=== PATIENT | male | born 1995 | race Caucasian/White ===

== ENCOUNTER 2016-12-21 17:36 | Emergency (ER) | payer MEDICAID ==
[2016-12-21 17:43] VITALS: RESP 16; TEMP 99.1
[2016-12-21] MEDS ORDERED: NS 1,000 ML IV ONE (18:06)
--- NOTE | 2016-12-21 18:27 | EDPHY ---
H & P Time Seen by Provider: 12/21/16 17:49 HPI/ROS: CHIEF COMPLAINT: Right buttock abscess HISTORY OF PRESENT ILLNESS: This is a 21-year-old male presenting to the emergency department complaining of abscess to his right butt cheek. Patient states "I tried to shoot heroin about a week and half ago, the redness and pain and swelling started about 4-5 days ago" patient also reports worsening pain today with intermittent fever. Patient also reports his last heroin injection to his left forearm was 4 hours ago. Has been a heroin user for 2 years the lungs patient has gone without heroin has been 24 hours then he developed symptoms of nausea vomiting abdominal pain denies any other symptoms at this time. REVIEW OF SYSTEMS: Constitutional: Intermittent fever. No chills. Eyes: No discharge. No blurred vision ENT: No sore throat. Cardiovascular: No chest pain, no palpitations. Respiratory: No cough, no shortness of breath. Gastrointestinal: No abdominal pain, no vomiting. No nausea Genitourinary: No hematuria. Musculoskeletal: No back pain. Skin: No rashes. Right buttock abscess Neurological: No headache. Smoking Status: Current some day smoker Physical Exam: General Appearance: Alert, no distress. Eyes: Pupils equal and round no pallor or injection. ENT, Mouth: Mucous membranes moist. Respiratory: There are no retractions, lungs are clear to auscultation. Cardiovascular: Regular rate and rhythm. Gastrointestinal: Abdomen is soft and nontender, no masses, bowel sounds normal. Neurological: No focal deficits. Answering questions appropriately Skin: Warm and dry, no rashes. Musculoskeletal: Neck is supple nontender. Extremities: old and new track aguilar from previous IV heroin injections on bilateral upper extremities no erythema. full range of motion. Right buttock 12 cm x 13 cm area of erythema warm and tender with a 6 cm x 4 cm indurated area Psychiatric: Patient is oriented X 3, there is no agitation. Constitutional: Initial Vital Signs Temperature (C) 37.3 C 12/21/16 17:39 Heart Rate 123 H 12/21/16 17:39 Respiratory Rate 16 12/21/16 17:39 O2 Sat (%) 100 12/21/16 17:39 O2 Delivery Mode Room Air Allergies/Adverse Reactions: No Known Allergies Allergy (Unverified 12/21/16 17:37) Home Medications: Medication Instructions Recorded Clindamycin HCl [Clindamycin] 300 mg PO TID #30 cap 12/21/16 Medical Decision Making Procedures: Procedure: Abscess drainage. The patient's abscess was located on the right buttock. I obtained verbal consent from the patient to drain the abscess who was informed about the risks including but not limited to the possibility of bleeding and pain. Lidocaine w/epi 10ml local infiltrate used. The abscess was incised with a #11 scalpel and moderate purulent drainage was expressed. I irrigated the wound and packed it with iodoform gauze. Wound culture sent. The patient tolerated the procedure well. The procedure was performed by myself. ED Course/Re-evaluation: Discussed ED plan of care: CBC, CMP, PT PTT, lactate, blood cultures,1 L of normal saline IV 2030: IV clindamycin 900 mg. 2100: Incision and drainage of abscess, patient tolerated procedure. Discussed discharge instructions--> stable, not in any distress discharge home Differential Diagnosis: Other differential diagnosis considered but not limited to sepsis, necrotizing fasciitis cellulitis - Data Points Laboratory Results: Laboratory Results 12/21/16 18:55 12/21/16 18:20 12/21/16 12/21/16 12/21/16 18:55 18:55 18:55 WBC 18.57 10^3/uL H 10^3/uL (3.80-9.50) RBC 4.49 10^6/uL 10^6/uL (4.40-6.38) Hgb 11.2 g/dL L g/dL (13.7-17.5) Hct 33.8 % L % (40.0-51.0) MCV 75.3 fL L fL (81.5-99.8) MCH 24.9 pg L pg (27.9-34.1) MCHC 33.1 g/dL g/dL (32.4-36.7) RDW 12.8 % % (11.5-15.2) Plt Count 358 10^3/uL 10^3/uL (150-400) MPV 9.7 fL fL (8.7-11.7) Neut % (Auto) 88.0 % H % (39.3-74.2) Lymph % (Auto) 4.7 % L % (15.0-45.0) Dyer % (Auto) 6.4 % % (4.5-13.0) Eos % (Auto) 0.1 % L % (0.6-7.6) Baso % (Auto) 0.3 % % (0.3-1.7) Nucleat RBC Rel Count 0.0 % % (0.0-0.2) Absolute Neuts (auto) 16.37 10^3/uL H 10^3/uL (1.70-6.50) Absolute Lymphs (auto) 0.87 10^3/uL L 10^3/uL (1.00-3.00) Absolute Monos (auto) 1.18 10^3/uL H 10^3/uL (0.30-0.80) Absolute Eos (auto) 0.01 10^3/uL L 10^3/uL (0.03-0.40) Absolute Basos (auto) 0.05 10^3/uL 10^3/uL (0.02-0.10) Absolute Nucleated RBC 0.00 10^3/uL 10^3/uL (0-0.01) Immature Gran % 0.5 % % (0.0-1.1) Seg Neutrophils % 68 % % Band Neutrophils % 20 % % Lymphocytes % 6 % % Monocytes % 6 % % Immature Gran # 0.09 10^3/uL 10^3/uL (0.00-0.10) Absolute Seg Neuts 12.63 10^/uL H 10^/uL (1.70-6.50) Absolute Band Neuts 3.71 10^3/uL H 10^3/uL (0.00-0.70) Absolute Lymphocytes 1.11 10^3/uL 10^3/uL (1.00-3.00) Absolute Monocytes 1.11 10^3/uL H 10^3/uL (0.30-0.80) RBC/WBC/PLT Morphology NORMAL (NORMAL) Platelet Estimate ADEQUATE (ADEQ) PT 16.0 SEC H SEC (12.0-15.0) INR 1.28 H (0.83-1.16) APTT 29.2 SEC SEC (23.0-38.0) VBG Lactic Acid 0.7 mmol/L mmol/L (0.7-2.1) Sodium Potassium Chloride Carbon Dioxide Anion Gap BUN Creatinine Estimated GFR Glucose Calcium Total Bilirubin 12/21/16 12/21/16 18:20 18:20 WBC REJ RBC TNP Hgb TNP Hct TNP MCV TNP MCH TNP MCHC TNP RDW TNP Plt Count TNP MPV TNP Neut % (Auto) TNP Lymph % (Auto) TNP Dyer % (Auto) TNP Eos % (Auto) TNP Baso % (Auto) TNP Nucleat RBC Rel Count TNP Absolute Neuts (auto) TNP Absolute Lymphs (auto) TNP Absolute Monos (auto) TNP Absolute Eos (auto) TNP Absolute Basos (auto) TNP Absolute Nucleated RBC TNP Immature Gran % TNP Seg Neutrophils % Band Neutrophils % Lymphocytes % Monocytes % Immature Gran # TNP Absolute Seg Neuts Absolute Band Neuts Absolute Lymphocytes Absolute Monocytes RBC/WBC/PLT Morphology Platelet Estimate PT INR APTT VBG Lactic Acid Sodium 138 mEq/L mEq/L (134-144) Potassium 4.2 mEq/L mEq/L (3.5-5.2) Chloride 105 mEq/L mEq/L (97-110) Carbon Dioxide 20 mEq/l L mEq/l (22-31) Anion Gap 13 mEq/L mEq/L (8-16) BUN 14 mg/dL mg/dL (7-23) Creatinine 0.8 mg/dL mg/dL (0.7-1.3) Estimated GFR > 60 Glucose 151 mg/dL H mg/dL (70-100) Calcium 9.4 mg/dL mg/dL (8.5-10.4) Total Bilirubin 1.0 mg/dL mg/dL (0.1-1.4) Medications Given: Discontinued Medications Hydromorphone HCl (Dilaudid) 1 mg IVP EDNOW ONE Stop: 12/21/16 20:07 Last Admin: 12/21/16 20:09 Dose: 1 mg Sodium Chloride (Ns) 1,000 mls @ 0 mls/hr IV ONCE ONE PRN Reason: Wide Open Stop: 12/21/16 18:07 Last Admin: 12/21/16 19:15 Dose: 1,000 mls Clindamycin Phosphate/Dextrose (Cleocin 900 Mg (Premix)) 50 mls @ 100 mls/hr IV EDNOW ONE PRN Reason: Protocol Stop: 12/21/16 20:42 Last Admin: 12/21/16 20:31 Dose: 50 mls Departure - Departure Disposition: Home, Routine, Self-Care Clinical Impression: Abscess, Cellulitis and abscess of buttock Incisional abscess Qualifiers: Encounter type: initial encounter Qualified Code(s): T81.4XXA - Infection following a procedure, initial encounter Condition: Good Instructions: Cellulitis (ED), Abscess (ED), Warm Compress or Soak (ED) Additional Instructions: 1. Take all antibiotics as prescribed 2. Ibuprofen 600-800mg every 6-8 hours 3. Follow up in 48 hours for wound check at [facility] if you cannot get into [facility] return here 4. I have drawn a [place] around the area of redness, monitor for any worsening symptoms, such as: Fever nausea vomiting redness abscess worsening return to the ER Referrals: NONE *PRIMARY CARE P,. [Primary Care Provider] - As per Instructions [facility],. [Clinic] - As per Instructions Prescriptions: Clindamycin HCl [Clindamycin] 300 mg PO TID #30 cap
[2016-12-21 18:43] LABS: ANION GAP 13 mEq/L (8-16); CALCIUM 9.4 mg/dL (8.5-10.4); CARBON DIOXIDE 20 mEq/l (22-31); CHLORIDE 105 mEq/L (97-110); CREATININE 0.8 mg/dL (0.7-1.3); GLOMERULAR FILTRATION RATE > 60; GLUCOSE 151 mg/dL (70-100); POTASSIUM 4.2 mEq/L (3.5-5.2); SODIUM 138 mEq/L (134-144)
[2016-12-21 19:12] LABS: INR 1.28 (0.83-1.16)
[2016-12-21 19:13] LABS: APTT 29.2 SEC (23.0-38.0)
[2016-12-21 19:25] LABS: % IMMATURE GRANULYOCYTES 0.5 % (0.0-1.1); ABSOLUTE IMMATURE GRANULOCYTES 0.09 10^3/uL (0.00-0.10); ADD DIFF? NO; ADD MORPH? NO; ADD SCAN? YES; ATYPICAL LYMPHOCYTE FLAG 10 (0-99); FRAGMENT RBC FLAG 0 (0-99); HEMATOCRIT 33.8 % (40.0-51.0); HEMOGLOBIN 11.2 g/dL (13.7-17.5); LIPEMIA HEMOLYSIS FLAG 80 (0-99); MEAN CELL HEMOGLOBIN 24.9 pg (27.9-34.1); MEAN CELL HEMOGLOBIN CONCENTR. 33.1 g/dL (32.4-36.7); MEAN CELL VOLUME 75.3 fL (81.5-99.8); MEAN PLATELET VOLUME 9.7 fL (8.7-11.7); PLATELET CLUMPS FLAG 10 (0-99); PLATELET COUNT 358 10^3/uL (150-400); RED BLOOD CELL COUNT 4.49 10^6/uL (4.40-6.38); RED CELL DISTRIBUTION WIDTH 12.8 % (11.5-15.2)
[2016-12-21 19:30] LABS: LEFT SHIFT FLG 160 (0-99)
[2016-12-21] MEDS ORDERED: HYDROmorphONE/DILAUDID 1 MG/ML SYR IVP ONE (20:06)
[2016-12-21 20:11] LABS: SCAN POSITIVE
[2016-12-21 20:13] LABS: PLATELET ESTIMATE ADEQUATE (ADEQ)
[2016-12-21] MEDS ORDERED: CLINDAMYCIN 900 MG/DEXTROSE 50 ML IV ONE (20:13)
[2016-12-21 20:35] VITALS: O2SAT 99
[2016-12-21 21:06] VITALS: BP 108/69; PULSE 96
== END 2016-12-21 21:05 | disposition home or self-care (01) ==
PROC: 0H98XZZ Drainage of Buttock Skin, External Approach (ICD-10-PCS; principal; 2016-12-21)
DX: L02.31 Cutaneous abscess of buttock (principal); L03.317 Cellulitis of buttock; F17.200 Nicotine dependence, unspecified, uncomplicated
CPT/HCPCS: 96365; J1170

== ENCOUNTER 2017-05-05 20:45 | Emergency (ER) | payer MEDICAID ==
[2017-05-05 20:56] VITALS: O2SAT 97
--- NOTE | 2017-05-05 21:38 | EDPHY ---
H & P Stated Complaint: abcess to r le Time Seen by Provider: 05/05/17 21:37 HPI/ROS: HPI: This is a 21-year-old male who presents with Chief Complaint: abcess to r le Location: Right dowd Quality: Abscess Duration: 6-12 days Signs and Symptoms: No bleeding, no radiation, no numbness, no weakness, no tingling, no incontinence, no decreased range of motion, + swelling, + pain Timing: Worsening Severity: Moderate to severe Context: Patient is IV heroin drug user last use 5 hr prior to arrival. Last abscess was in November treated in this emergency room with I and D and clindamycin. Patient reports that he followed up with [facility] at that time for wound care. No prior history MRSA/DM. Patient tried to use a needle to I and D the abscess approximately 4 days ago with drainage noted. He is able to ambulate without difficulty. Reports tetanus is up-to-date. Modifying Factors: I&D Comment: ROS: see HPI Constitutional: No fever, no chills, no weight loss Eyes: No blurred vision Respiratory: No shortness of breath, no cough Cardiovascular: No chest pain Gastrointestinal: No nausea, no vomiting no diarrhea Genitourinary: No dysuria Extremities: No myalgias Neurologic: No weakness, no numbness Skin: No rashes Hematologic: No bruising, no bleeding MEDICAL/SURGICAL/SOCIAL HISTORY: Medical history: IV heroin user. Does not take any regular medications. Surgical history: Denies Social history: Unemployed. CONSTITUTIONAL: Nontoxic appearing young adult white male, awake and alert, no obvious distress HEENT: Atraumatic and normocephalic, PERRL, EOMI. Tympanic membranes clear. Oropharynx clear, no exudate and moist pink mucosa. Airway patent. No lymphadenopathy. No meningismus. Cardiovascular: Normal S1/S2, regular rate, regular rhythm, without murmur rub or gallop. PULMONARY/CHEST: Symmetrical and nontender. Clear to auscultation bilaterally. Good air movement. No accessory muscle usage. ABDOMEN: Soft, nondistended, nontender, no rebound, no guarding, no peritoneal signs, no masses or organomegaly. No CVAT. EXTREMITIES: 2/2 DP and PT pulses, strength 5/5, right dowd shows 8 cm fluctuant skin colored abscess; no surrounding erythema/induration. no deformities, no clubbing, no cyanosis or edema. NEUROLOGICAL: no focal neuro deficits. GCS 15. SKIN: Warm and dry, no erythema. no rash. Good capillary refill. Source: Patient Exam Limitations: No limitations - Personal History Current Tetanus/Diphtheria Vaccine: Yes Current Tetanus Diphtheria and Acellular Pertussis (TDAP): Yes - Medical/Surgical History Hx Asthma: No Hx Chronic Respiratory Disease: No Hx Diabetes: No Hx Cardiac Disease: No Hx Renal Disease: No Hx Cirrhosis: No Hx Alcoholism: No Hx HIV/AIDS: No Hx Splenectomy or Spleen Trauma: No Other PMH: denies. heroine abuse - Social History Smoking Status: Current every day smoker Constitutional: Initial Vital Signs Temperature (C) 37.1 C 05/05/17 20:52 Heart Rate 131 H 05/05/17 20:52 Respiratory Rate 18 05/05/17 20:52 Blood Pressure 143/80 H 05/05/17 20:52 O2 Sat (%) 97 05/05/17 20:52 O2 Delivery Mode Room Air Allergies/Adverse Reactions: No Known Allergies Allergy (Unverified 12/21/16 17:37) Home Medications: Medication Instructions Recorded Clindamycin HCl [Clindamycin] 300 mg PO TID #30 cap 05/05/17 Medical Decision Making - Diagnostics Imaging Results: Imaging Impressions Tibia/Fibula X-Ray 05/05/17 22:15 Impression: Deep soft tissue abscess near the anteromedial margin of the upper right tibia. No radiographic evidence of osteomyelitis. Procedures: Procedure: Abscess drainage. The patient's abscess was located on the right dowd. I obtained verbal consent from the patient to drain the abscess who was informed about the possibility of bleeding and pain. The abscess was incised with #11 scalpel and a 40 ML amount of purulent drainage was expressed. I irrigated the wound and placed some 0.5 inch packing. Clean sterile dressing and Tano wrap applied. The patient tolerated the procedure well. The procedure was performed by myself. ED Course/Re-evaluation: Labs, blood cultures, IV fluids, IV medications, I&D, wound culture ordered Tetanus up-to-date Given 1 L normal saline, IV clindamycin given Leukocytosis of 19 K noted; no signs of sepsis. X-ray shows: Deep soft tissue abscess near the anteromedial margin of the upper right tibia. I and D performed; irrigated copiously with 1.5 L of normal saline. Placed half- inch gauze. ABD pad and then Tano wrap applied. Patient reassessed: Able to fully move his leg. Reports resolution of pain. Tachycardia upon arrival improved at discharge. I have recommended the patient be admitted to the hospital for IV antibiotics. Patient adamantly refuses. Patient understands that he is high risk for failure of outpatient therapy. After much discussion, he does agree to follow up with [facility] in 2 days for wound check. He understands the risk of worsening infection, sepsis, loss of limb. Differential Diagnosis: Differential diagnosis includes but is not limited to abscess, cellulitis. - Data Points Laboratory Results: Laboratory Results 05/05/17 22:10 05/05/17 22:10 05/05/17 05/05/17 05/05/17 22:45 22:10 22:10 WBC 19.78 10^3/uL H 10^3/uL (3.80-9.50) RBC 4.39 10^6/uL L 10^6/uL (4.40-6.38) Hgb 9.7 g/dL L g/dL (13.7-17.5) Hct 30.0 % L % (40.0-51.0) MCV 68.3 fL L fL (81.5-99.8) MCH 22.1 pg L pg (27.9-34.1) MCHC 32.3 g/dL L g/dL (32.4-36.7) RDW 16.8 % H % (11.5-15.2) Plt Count 511 10^3/uL H 10^3/uL (150-400) MPV 8.8 fL fL (8.7-11.7) Neut % (Auto) 85.2 % H % (39.3-74.2) Lymph % (Auto) 6.9 % L % (15.0-45.0) Rhea % (Auto) 6.1 % % (4.5-13.0) Eos % (Auto) 0.8 % % (0.6-7.6) Baso % (Auto) 0.5 % % (0.3-1.7) Nucleat RBC Rel Count 0.0 % % (0.0-0.2) Absolute Neuts (auto) 16.87 10^3/uL H 10^3/uL (1.70-6.50) Absolute Lymphs (auto) 1.36 10^3/uL 10^3/uL (1.00-3.00) Absolute Monos (auto) 1.21 10^3/uL H 10^3/uL (0.30-0.80) Absolute Eos (auto) 0.15 10^3/uL 10^3/uL (0.03-0.40) Absolute Basos (auto) 0.09 10^3/uL 10^3/uL (0.02-0.10) Absolute Nucleated RBC 0.00 10^3/uL 10^3/uL (0-0.01) Immature Gran % 0.5 % % (0.0-1.1) Immature Gran # 0.10 10^3/uL 10^3/uL (0.00-0.10) Platelet Estimate INCREASED H (ADEQ) Polychromasia 1+ H Hypochromasia 1+ H Microcytic Cells 1+ H Smear Review By Pending VBG Lactic Acid 0.7 mmol/L mmol/L (0.7-2.1) Sodium 136 mEq/L mEq/L (134-144) Potassium 4.3 mEq/L mEq/L (3.5-5.2) Chloride 97 mEq/L mEq/L (97-110) Carbon Dioxide 27 mEq/l mEq/l (22-31) Anion Gap 12 mEq/L mEq/L (8-16) BUN 14 mg/dL mg/dL (7-23) Creatinine 0.7 mg/dL mg/dL (0.7-1.3) Estimated GFR > 60 Glucose 112 mg/dL H mg/dL (70-100) Calcium 9.2 mg/dL mg/dL (8.5-10.4) Medications Given: Discontinued Medications Clindamycin Phosphate/Dextrose (Cleocin 600 Mg (Premix)) 50 mls @ 100 mls/hr IV EDNOW ONE PRN Reason: Protocol Stop: 05/05/17 22:31 Last Admin: 05/05/17 22:29 Dose: 50 mls Sodium Chloride (Ns) 1,000 mls @ 0 mls/hr IV EDNOW ONE; Wide Open PRN Reason: Protocol Stop: 05/05/17 22:04 Last Admin: 05/05/17 22:23 Dose: 1,000 mls Departure - Departure Disposition: Home, Routine, Self-Care Clinical Impression: Abscess of right lower leg, Intravenous drug user Condition: Fair Instructions: Abscess (ED), Abscess Follow-up (ED) Additional Instructions: Keep the dressing dry and in place for 48 hours. After seen by [facility], you may remove the dressing; wash the site daily with mild soap and water; then pat dry; repack the wound daily until healed. Keep the wound covered with clean sterile dressing until fully healed. Take all of the antibiotic until complete. Take Tylenol 650 mg every 4 hours and/or Ibuprofen 600 mg every 8 hours with food as needed for pain. Follow up with [facility] in 2 days at which time they will perform a wound check. Referrals: [facility],. [Clinic] - As per Instructions Prescriptions: Clindamycin HCl [Clindamycin] 300 mg PO TID #30 cap
[2017-05-05] MEDS ORDERED: CLINDAMYCIN 600 MG/DEXTROSE 50 ML IV ONE (22:02)
[2017-05-05] MEDS ORDERED: NS 1,000 ML IV ONE (22:03)
[2017-05-05 22:33] LABS: % IMMATURE GRANULYOCYTES 0.5 % (0.0-1.1); ADD DIFF? NO; ADD MORPH? YES; ADD SCAN? NO; ATYPICAL LYMPHOCYTE FLAG 0 (0-99); FRAGMENT RBC FLAG 20 (0-99); HEMOGLOBIN 9.7 g/dL (13.7-17.5); LEFT SHIFT FLG 0 (0-99); LIPEMIA HEMOLYSIS FLAG 80 (0-99); MEAN CELL HEMOGLOBIN 22.1 pg (27.9-34.1); MEAN CELL HEMOGLOBIN CONCENTR. 32.3 g/dL (32.4-36.7); MEAN PLATELET VOLUME 8.8 fL (8.7-11.7); PLATELET CLUMPS FLAG 0 (0-99); PLATELET COUNT 511 10^3/uL (150-400); RED BLOOD CELL COUNT 4.39 10^6/uL (4.40-6.38); RED CELL DISTRIBUTION WIDTH 16.8 % (11.5-15.2)
[2017-05-05 22:35] LABS: MEAN CELL VOLUME 68.3 fL (81.5-99.8)
[2017-05-05 22:41] LABS: ANION GAP 12 mEq/L (8-16); CALCIUM 9.2 mg/dL (8.5-10.4); CARBON DIOXIDE 27 mEq/l (22-31); CHLORIDE 97 mEq/L (97-110); CREATININE 0.7 mg/dL (0.7-1.3); GLOMERULAR FILTRATION RATE > 60; GLUCOSE 112 mg/dL (70-100); POTASSIUM 4.3 mEq/L (3.5-5.2); SODIUM 136 mEq/L (134-144)
[2017-05-05 23:19] VITALS: BP 124/75; PULSE 94; RESP 16; TEMP 98.4
[2017-05-05 23:49] LABS: HYPOCHROMIA 1+; MICROCYTES 1+; PLATELET ESTIMATE INCREASED (ADEQ); POLYCHROMASIA 1+
== END 2017-05-05 23:18 | disposition home or self-care (01) ==
PROC: 0H9KXZZ Drainage of Right Lower Leg Skin, External Approach (ICD-10-PCS; principal; 2017-05-05)
DX: L02.415 Cutaneous abscess of right lower limb (principal); F19.10 Other psychoactive substance abuse, uncomplicated; F17.200 Nicotine dependence, unspecified, uncomplicated
CPT/HCPCS: 96365

== ENCOUNTER 2017-10-30 19:23 | Emergency (ER) | payer OTHER, MEDICAID ==
--- NOTE | 2017-10-30 20:06 | EDPHY ---
H & P Time Seen by Provider: 10/30/17 19:44 HPI/ROS: CHIEF COMPLAINT: Arm wounds HISTORY OF PRESENT ILLNESS: Patient is a 21-year-old male with a history of IV drug abuse who presents emergency department with chronic right arm lesions and swelling. Patient denies any recent antibiotic use. He has not been evaluated or treated by a care provider. The patient is currently under resting going to half-way. He is here for [employer]. Patient states his wound have been constant for the past 1-2 months. They are not worsening in size. They are not tender to touch. He denies fevers or chills. REVIEW OF SYSTEMS: My complete review of systems is negative except as mentioned in the HPI. Past Medical/Surgical History: IV drug abuse Smoking Status: Current every day smoker Physical Exam: 36.7, 127/79, 104, 18, 99% on room air GENERAL: In no acute distress, alert. HEENT: Eyes normal to inspection, normal pharynx, no signs of dehydration. NECK: [No thyromegaly, no lymphadenopathy, supple. RESPIRATORY: Clear to auscultation bilaterally, no rales, rhonchi or wheezing. CVS: Regular rate and rhythm, no rubs, murmurs, or gallops. ABDOMEN: Soft, nontender, nondistended, no organomegaly. BACK: Normal to inspection, no CVA tenderness. SKIN: Normal color, no rash, warm, dry. No pallor. EXTREMITIES: Patient has swelling on both forearms. Left arm: The patient's left forearm has a large open wound. There is surrounding tense skin but this is not fluctuant. Patient denies tenderness to palpation. No streaking redness up the arm. There is no discoloration of the hand. Neurovascular intact distally of his left lower extremity. Right arm: Patient's right upper extremity also has swelling over the forearm. There is no open wound. There is no streaking or redness up the arm. No pedal edema, no calf tenderness, no Homans sign or cords, no joint swelling. NEURO/PSYCH: Alert and oriented x3, normal mood and affect, normal motor sensory exam. Constitutional: Initial Vital Signs Temperature (C) 36.7 C 10/30/17 19:25 Heart Rate 104 H 10/30/17 19:25 Respiratory Rate 18 10/30/17 19:25 Blood Pressure 127/79 H 06/08/18 19:25 O2 Sat (%) 99 10/30/17 19:25 O2 Delivery Mode Room Air Allergies/Adverse Reactions: No Known Allergies Allergy (Unverified 10/30/17 19:35) Home Medications: Medication Instructions Recorded Cephalexin [Keflex (*)] 500 mg PO QID 10 Days cap 10/30/17 Sulfamethox/Tmp 800/160 mg 1 tab PO BID #20 tab 10/30/17 [Bactrim Ds] Medical Decision Making ED Course/Re-evaluation: In the emergency department I discussed possible etiologies with the patient. I consult Dr. Whitehead from surgery. Dr. Whitehead was in the emergency department. He evaluated the patient. Performed ultrasound bedside. He is on a fluid collection or ER for drainage. Patient's white count is 12. Patient is anemic with hematocrit 26. Patient's chemistry panel is unremarkable. Lactic acid is normal. I discussed case with Dr. Whitehead. He recommended the patient be discharged to half-way. He recommended the patient have silvasorb cream for dressing if able. Patient will be given Keflex and Bactrim. He is given the 1st dose in the emergency department. Discussed the plan with the patient. Answered all his questions. Differential Diagnosis: My differential includes but is not limited to abscess, cellulitis, foreign body , bacteremia, sepsis, anemia - Data Points Laboratory Results: Laboratory Results 10/30/17 20:30 10/30/17 20:30 10/30/17 10/30/17 10/30/17 20:30 20:30 20:30 WBC 12.04 10^3/uL H 10^3/uL (3.80-9.50) RBC 4.17 10^6/uL L 10^6/uL (4.40-6.38) Hgb 8.2 g/dL L g/dL (13.7-17.5) Hct 26.9 % L % (40.0-51.0) MCV 64.5 fL L fL (81.5-99.8) MCH 19.7 pg L pg (27.9-34.1) MCHC 30.5 g/dL L g/dL (32.4-36.7) RDW 18.5 % H % (11.5-15.2) Plt Count 564 10^3/uL H 10^3/uL (150-400) MPV 9.3 fL fL (8.7-11.7) Neut % (Auto) 78.0 % H % (39.3-74.2) Lymph % (Auto) 11.9 % L % (15.0-45.0) Sullivan % (Auto) 5.8 % % (4.5-13.0) Eos % (Auto) 3.4 % % (0.6-7.6) Baso % (Auto) 0.6 % % (0.3-1.7) Nucleat RBC Rel Count 0.0 % % (0.0-0.2) Absolute Neuts (auto) 9.39 10^3/uL H 10^3/uL (1.70-6.50) Absolute Lymphs (auto) 1.43 10^3/uL 10^3/uL (1.00-3.00) Absolute Monos (auto) 0.70 10^3/uL 10^3/uL (0.30-0.80) Absolute Eos (auto) 0.41 10^3/uL H 10^3/uL (0.03-0.40) Absolute Basos (auto) 0.07 10^3/uL 10^3/uL (0.02-0.10) Absolute Nucleated RBC 0.00 10^3/uL 10^3/uL (0-0.01) Immature Gran % 0.3 % % (0.0-1.1) Immature Gran # 0.04 10^3/uL 10^3/uL (0.00-0.10) Platelet Estimate INCREASED H (ADEQ) Hypochromasia 1+ H Microcytic Cells 1+ H Smear Review By Pending VBG Lactic Acid 0.9 mmol/L mmol/L (0.7-2.1) Sodium 138 mEq/L mEq/L (135-145) Potassium 4.7 mEq/L mEq/L (3.3-5.0) Chloride 102 mEq/L mEq/L (97-110) Carbon Dioxide 27 mEq/l mEq/l (22-31) Anion Gap 9 mEq/L mEq/L (8-16) BUN 12 mg/dL mg/dL (7-23) Creatinine 0.7 mg/dL mg/dL (0.7-1.3) Estimated GFR > 60 Glucose 94 mg/dL mg/dL (70-100) Calcium 9.2 mg/dL mg/dL (8.5-10.4) Departure - Departure Disposition: Law Enforcement/Court/Care Home Clinical Impression: Open wound Condition: Good Instructions: Chronic Wounds (ED) Additional Instructions: Take your entire course of antibiotics. You should have your wound dressing changed daily. The surgeon recommends using silvadene or bacitracin under dressing. Follow up with Dr. Whitehead in clinic. Referrals: Murphy Whitehead MD [Medical Doctor] - 5-7 days, call for appt. Prescriptions: Cephalexin [Keflex (*)] 500 mg PO QID 10 Days cap Sulfamethox/Tmp 800/160 mg [Bactrim Ds] 1 tab PO BID #20 tab
[2017-10-30 20:53] LABS: PLATELET COUNT 564 10^3/uL (150-400)
[2017-10-30] MEDS ORDERED: BACITRACIN OINTMENT 1 PACKET TP ONE (21:29)
[2017-10-30] MEDS ORDERED: SULFAMET/TMP DS PREPACK#2 BTL TAKEHOME ONE (21:48)
[2017-10-30] MEDS ORDERED: CEPHALEXIN 500MG PREPACK#4 BTL TAKEHOME ONE (21:48)
[2017-10-30] MEDS ORDERED: BACITRACIN ZINC 14.2 GM OINTTUBE TP ONE (22:00)
[2017-10-30 22:13] VITALS: BP 126/80
--- NOTE | 2017-10-30 23:29 | GCON ---
[f rep st] CONSULTATION DATE OF CONSULTATION: 10/30/2017 CHIEF COMPLAINT: Bilateral upper extremity wounds. HISTORY OF PRESENT ILLNESS: This is a 21-year-old male brought in by [place] [employer] as he was recent ly arrested, he was brought here basically for medical clearance prior to going to halfway and was found to have bilateral upper extremity wounds secondary to IV drug use. The patient states that he has b een injecting IV drugs for some time and that he "missed the vein on both of his upper extremities an d that he has had wounds in various states of healing on bilateral upper extremities since that time. " He states that the right side initially had a fluid collection, subsequently drained, had an open wound and has now for the most part scarred. The left upper extremity has done the same except for t he left upper extremity has approximate 4 x 3 area of open wound without necrosis or any other concer sosa findings. He denies having any fevers or chills. States that he feels well. His last injectio n of IV drugs was earlier today. Other than the chronic wounds, denies having any issues with these. PAST MEDICAL HISTORY: IV drug use. PAST SURGICAL HISTORY: None. CURRENT MEDICATIONS: None. FAMILY HISTORY: Noncontributory. 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 Daily IV drug user. REVIEW OF SYSTEMS: A full 10-point review was performed. PHYSICAL EXAMINATION: VITAL SIGNS: Temp 36.7, blood pressure 127/79, heart rate 84, he is 99% on ro om air with respirations of 18. GENERAL: He is in no acute distress. He is alert and oriented. HE ENT: His extraocular movements are intact. His pupils are equal, round, and reactive to light and a ccommodation. He has anicteric sclerae. His neck is soft, supple, without any adenopathy. His mout h has normal dentition. He has no oral mucosal ulcers. NECK: No thyromegaly. Trachea is midline. RESPIRATORY: Clear to auscultation. No rales, rhonchi. CARDIOVASCULAR: He has a regular rate and rhythm without any murmurs. ABDOMEN: Soft, nondistended, nontender. His back is normal to inspect ion without CVA tenderness. His skin, again, bilateral upper extremities on the right side he has an area measuring approximately 5 x 3, it has some woody induration. No fluctuance. Relatively nonten georgie. A few small scabs, but no signs of any fluid collections and/or necrosis. He has a small open draining wound approximately 2 cm2 in the right upper extremity which is actively draining serosangui neous fluid. The left upper extremity again has a wound measuring about the same as the right. Ther e is about a 3 x 4 area which is open. No underlying fluctuance. The open area has decent underlyin g fibrinous exudate with some scabs. No necrosis noted. No other skin lesions other than a skin inj ection site in his right buttock, which is clean dry and intact. EXTREMITIES: Distal neurovascular intact. He can move both extremities. He denies having any pain. NEURO: He is alert and oriented x3. Normal mood, normal affect. PSYCH: He is interacting appropriately. He is not encephalopathic . LABS: Leukocytosis to 12,000, H and H is low but stable at 8 and 27. Chemistry is largely unremarka ble. Lactate is normal at 0.9. Images: A bedside ultrasound was performed and interpreted by me. The right upper extremity has kp e stranding within the tissue, but no drainable abscess. The left upper extremity is the same. No d rainable abscess. No appreciable fluid collections. ASSESSMENT AND PLAN: A 21-year-old IV drug user male brought in by the local police department on hi s [facility] to halfway. I was asked to evaluate his upper extremity wounds. They have been there chronically for at least the past 3 months. It appears as though the body is taking care these naturally. The right upper extremity has drained and has sealed over. I do not appreciate any fluid collection or f luctuance there. The left upper extremity is still open and will require wound care. I do not feel that there is anything worrisome on my examination or the bedside ultrasound which would make me sarah zina that the patient would need any operative exploration given the fact that it is appropriately ting hemphill, albeit slow. Plan will be to discharge the patient to halfway. I have provided directions for wo und care. The patient is welcome to follow up with me either in the [facility] or in the surg ical office to follow these wounds which I feel will continue to heal via secondary intention. I dis cussed these findings with the [place] police officer in charge of the patient as well as the ED physician santana higuera for the patient. /[id number]/MODL
== END 2017-10-30 22:12 ==
LOC: EEVIPCON 19:23
DX: S51.802A Unspecified open wound of left forearm, initial encounter (principal); F17.200 Nicotine dependence, unspecified, uncomplicated; X58.XXXA Exposure to other specified factors, initial encounter; Y99.8 Other external cause status